=== PATIENT | female | born 1995 | race Two or more races ===

== ENCOUNTER 2020-01-03 02:15 | Emergency (ER) | payer OTHER ==
[~2020-01-03] VITALS: Ht 152.4 cm; Wt 36.3 kg
--- NOTE | 2020-01-03 02:20 | NUR ---
PT BIBSELF STATES " I HAVE SOMETHING STUCK IN MY THROAT SINCE YESTERDAY". PT APPEARS TO BE ANXIOUS. PT AAOX4, NO ACUTE DISTRESS NOTED, SATTING 100% ROOM AIR. PT CONNECTED TO THE SOFTWARE SUPPORT ENGINEER AND POX.
--- NOTE | 2020-01-03 02:44 | NUR ---
BLOOD COLLECTED AND SENT TO LAB
--- NOTE | 2020-01-03 02:46 | NUR ---
XRAY AT BEDSIDE
[2020-01-03 02:53] LABS: BASOPHILS % (AUTO) 0.6 % (0.0-2.0); EOSINOPHILS % (AUTO) 0.8 % (0.0-6.0); HEMATOCRIT 41 % (33-45); HEMOGLOBIN 13.3 g/dL (11.5-14.8); LYMPHOCYTES # (AUTO) 2.5 /CMM (0.8-4.8); LYMPHOCYTES % (AUTO) 34.7 % (20.0-44.0); MEAN CORPUSCULAR HGB CONC 33 g/dl (31.0-36.0); MEAN CORPUSCULAR VOLUME 83 fL (82-100); MONOCYTES # (AUTO) 0.4 /CMM (0.1-1.30); MONOCYTES % (AUTO) 5.5 % (2.0-12.0); NEUTROPHILS # (AUTO) 4.2 /CMM (1.8-8.9); NEUTROPHILS % (AUTO) 58.4 % (43.0-81.0); PLATELET COUNT (AUTO) 423 /CMM (150-450); RED BLOOD CELL COUNT(AUTO) 4.91 MIL/uL (4.0-5.2); WHITE BLOOD COUNT (AUTO) 7.2 K/uL (4.3-11.0)
[2020-01-03] MEDS ORDERED: IV NS 0.9% 1,000 ML IV PRN ×2 (03:00→05:30)
[2020-01-03 03:02] LABS: CALCIUM, SERUM 9.2 mg/dL (8.5-10.1); CREATININE 0.8 mg/dL (0.6-1.3)
--- NOTE | 2020-01-03 03:06 | NUR ---
PER [employer] SUPERINTENDENT, T4 AND THYROID LAB WILL BE SENT OUT. PENDING RESULTS APPROX 2-3HR. AWARE
--- NOTE | 2020-01-03 03:59 | NUR ---
FADY KRUSE FROM LAB, THYROID AND T4 LABS WILL BE RESULTED APPROX 4 HOURS.
--- NOTE | 2020-01-03 04:36 | NUR ---
PT TRANSFERRED TO ROOM IN STABLE CONDITION
--- NOTE | 2020-01-03 04:45 | NUR ---
Patient is resting comfortably in bed. Easily aroused. VSS.
--- NOTE | 2020-01-03 05:23 | NUR ---
Diana sister [phone] Balaji muñoz
[2020-01-03] MEDS ORDERED: PROPRANOLOL HCL IV 1 MG/ML VIAL IVP ONE ×2 (06:14→06:30)
[2020-01-03] MEDS ORDERED: POTASSIUM CHLORIDE 20 MEQ TAB.PRT.SR PO ONE ×2 (06:28→06:30)
[2020-01-03] MEDS ORDERED: POTASSIUM CHLORIDE 20 MEQ POWDER PACKET ONE (06:31)
--- NOTE | 2020-01-03 06:36 | NUR ---
pt unable to swallow PO K Dur. Potassium powder ordered.
[2020-01-03] MEDS ORDERED: POTASSIUM CHLORIDE 20 MEQ POWDER PACKET PO ONE (07:00)
[2020-01-03 08:39] LABS: THYROID STIMULATING HORMONE 1.3 uIU/mL (0.358-3.74)
--- NOTE | 2020-01-03 08:58 | NUR ---
Patient discharged to home in stable condition. Written and verbal after care instructions given. Patient verbalizes understanding of instruction. IV removed. Catheter intact and site benign. Pressure and 4x4 applied to site. No bleeding noted.
[2020-01-03 08:59] VITALS: BP 108/71
== END 2020-01-03 09:01 | disposition home or self-care (01) ==
LOC: ER 02:18
DX: R00.0 Tachycardia, unspecified (principal); J02.9 Acute pharyngitis, unspecified
CPT/HCPCS: 36415; 70360; 80048; 84439; 84443; 85025; 96374; 99285; J1800; J7030

== ENCOUNTER 2021-08-27 18:26 | Emergency (ER) | payer OTHER ==
[~2021-08-27] VITALS: Ht 154.9 cm; Wt 34.5 kg
[2021-08-27 18:41] VITALS: BP 119/91
--- NOTE | 2021-08-27 18:50 | NUR ---
NIGHAT JARAMILLO AT BEDSIDE
[2021-08-27] MEDS ORDERED: KETOROLAC TROMETHAMINE INJ 60 MG/2 ML VIAL IM ONE (19:00)
--- NOTE | 2021-08-27 19:00 | NUR ---
PT BIB FATHER @ 184 C/O MOUTH PAIN/ R SIDE FACIAL SWELLING SINCE YESTERDAY
[2021-08-27] MEDS ORDERED: KETOROLAC TROMETHAMINE 15 MG/ML VIAL ONE (19:03)
[2021-08-27] MEDS ORDERED: AMOX-430 PO (19:14)
--- NOTE | 2021-08-27 19:22 | NUR ---
Patient discharged to home in stable condition. RX Written and verbal after care instructions given. Patient verbalizes understanding of instruction. PT ambulatory with a steady gait
== END 2021-08-27 19:24 | disposition home or self-care (01) ==
LOC: ER 18:28
DX: K04.7 Periapical abscess without sinus (principal); K02.9 Dental caries, unspecified; K08.89 Other specified disorders of teeth and supporting structures
CPT/HCPCS: 96372; 99283; J1885